=== PATIENT | male | born 1990 | race Caucasian/White ===

== ENCOUNTER 2020-06-04 07:14 | Emergency (ER) | payer SELFPAY ==
[2020-06-04 07:25] VITALS: BP 154/75
--- NOTE | 2020-06-04 08:21 | ER Document Report ---
ED Oral Problem - General Chief Complaint: Toothache Stated Complaint: MOUTH PAIN Time Seen by Provider: 06/04/20 08:14 Notes: CHIEF COMPLAINT: Dental pain HPI: 29-year-old male with pain and swelling to the upper aspect of the mouth over the last 5 to 6 days. Patient states he has a bad tooth and believes he is getting a small abscess. Started taking an unknown antibiotic he got from his sister without improvement. No fever. ROS: See HPI - all other systems were reviewed and are otherwise negative Constitutional: no fever Eyes: no drainage, no blurred vision ENT: no runny nose, no sore throat, positive dental pain Integumentary: no rash Allergy: no hives MEDICATIONS: I agree with the patient medications as charted by the RN. ALLERGIES: I agree with the allergies as charted by the RN. PAST MEDICAL HISTORY/PAST SURGICAL HISTORY: Reviewed and agree as charted by RN. SOCIAL HISTORY: Reviewed and agree as charted by RN. FAMILY HISTORY: No significant familial comorbid conditions directly related to patient complaint EXAM: Reviewed vital signs as charted by RN. CONSTITUTIONAL: Alert and oriented and responds appropriately to questions. Well-appearing; well-nourished HEAD: Normocephalic; atraumatic EYES: PERRL; Conjunctivae clear, sclerae non-icteric ENT: normal nose; no rhinorrhea; moist mucous membranes; pharynx without lesions noted, no uvula edema or deviation, no tonsillar hypertrophy, phonation normal. Right upper central incisor with moderate dental decay. There is a small raised area just posterior to the tooth that appears to be a developing abscess. No fluctuance. No trismus. No sublingual swelling. No facial swelling. NECK: Supple without meningismus; non-tender; no cervical lymphadenopathy, no masses CARD: Capillary refill less than 3 seconds RESP: Normal chest excursion without splinting or tachypnea ABD/GI: non-distended BACK: The back appears normal EXT: Normal ROM in all joints; no cyanosis, no effusions, no edema SKIN: Normal color for age and race; warm; dry; good turgor NEURO: Moves all extremities equally; Motor and sensory function intact PSYCH: The patient's mood and manner are appropriate. Grooming and personal hygiene are appropriate. MDM: 29-year-old male with dental caries with likely developing dental abscess. Will start patient on antibiotics follow-up with a dentist TRAVEL OUTSIDE OF THE [place] IN LAST 30 DAYS: No - Related Data Allergies/Adverse Reactions: No Known Allergies Allergy (Unverified 10/03/15 22:27) Past Medical History - Social History Smoking Status: Current Every Day Smoker Frequency of alcohol use: Rare Drug Abuse: None Family History: CAD, Hyperlipidemia, Hypertension - Immunizations Immunizations up to date: Yes Hx Diphtheria, Pertussis, Tetanus Vaccination: Yes Physical Exam - Vital signs Vitals: Temp Pulse Resp BP Pulse Ox 98.0 F 90 16 154/75 H 98 06/04/20 07:21 06/04/20 07:21 06/04/20 07:21 06/04/20 07:21 06/04/20 07:21 Course - Vital Signs Vital signs: Temp Pulse Resp BP Pulse Ox 98.0 F 90 16 154/75 H 98 06/04/20 07:21 06/04/20 07:21 06/04/20 07:21 06/04/20 07:21 06/04/20 07:21 Discharge - Discharge Clinical Impression: Dental caries, Dental abscess Condition: Stable Disposition: HOME, SELF-CARE Instructions: Toothache (OM) Additional Instructions: 1. Take the medications as prescribed, if you were written antibiotics make sure that you finish them. 2. You need to follow up with a dentist for definitive evaluation and care of your dental problems 3. return to the ED for any facial swelling, fever > 101, difficulty swallowing or opening the mouth. 4. You may attempt to follow up with the [facility] for further care as well as through the dental list provided. 5. you may want to consider a dental discount plan such as [email or web address] to help with costs of dental care as you do not have dental insurance Prescriptions: Tramadol HCl [Ultram 50 mg Tablet] 50 mg PO Q6HP PRN #12 tab PRN Reason: Amoxicillin 1 tab PO TID #30 tab Naproxen 500 mg PO BID PRN #14 tablet PRN Reason:
== END 2020-06-04 08:39 | disposition home or self-care (01) ==
LOC: ER 07:14
DX: K04.7 Periapical abscess without sinus (principal); K02.9 Dental caries, unspecified; F17.200 Nicotine dependence, unspecified, uncomplicated
CPT/HCPCS: 99283